=== PATIENT | female | born 1995 | race Caucasian/White ===

== ENCOUNTER 2017-04-26 22:38 | Emergency (ER) | payer OTHER ==
[~2017-04-26] VITALS: Ht 170.2 cm; Wt 54.0 kg
[~2017-04-26 22:38] MED LIST: ACET325T33 PO
[2017-04-26 22:44] VITALS: Ht 170.2 cm; Wt 54.0 kg
[2017-04-27 00:15] LABS: BASOPHILS % 0.2 % (0.0-2.0); EOSINOPHILS # 0.2 10^3/ul (0.0-0.5); EOSINOPHILS % 1.9 % (0.0-7.0); HEMATOCRIT 33.9 % (37.0-47.0); HEMOGLOBIN 11.9 g/dl (12.0-16.0); LYMPHOCYTES % 24.3 % (15.0-51.0); MEAN CORPUSCULAR HGB CONC 35.1 g/dl (32.0-37.0); MEAN CORPUSCULAR VOLUME 88.3 fl (82.0-101.0); MEAN PLATELET VOLUME 10.3 fl (7.4-10.4); MONOCYTE # 0.5 10^3/ul (0.3-0.9); MONOCYTES % 5.7 % (0.0-11.0); NEUTROPHIL # 5.7 10^3/ul (1.6-7.5); NEUTROPHILS % 67.5 % (39.0-77.0); PLATELET COUNT 218 10^3/UL (140-415); RED BLOOD COUNT 3.84 10^6/ul (4.20-5.40); RED CELL DISTRIBUTION WIDTH 12.9 % (11.5-14.5); WHITE BLOOD COUNT 8.4 10^3/ul (4.8-10.8)
--- NOTE | 2017-04-27 00:24 | RADRPT ---
PROCEDURE: US OB. CLINICAL INDICATION: Vaginal bleeding. Positive TECHNIQUE: Transabdominal and transvaginal views of the pelvis are available for review. COMPARISON: No prior studies are available for comparison. FINDINGS: Uterus: No evidence of masses and normal in size. Endometrial cavity: Intrauterine gestational sac and yolk sac are present with the following inform ation: Yolk sac:0.29 cm Gestational sac:1.00 cm Ultrasound estimated gestational age:5 weeks 4 days No embryonic pole is demonstrated. There is no evidence of subchorionic hemorrhage. Right ovary/adnexa: Ovarian size is normal estimated at 3.5 x 2.2 x 2.2 cm. No ovarian or adnexal mass lesion is seen. Left ovary/adnexa: Ovarian size increased estimated at 5.1 x 4.6 x 3.2 cm. Simple anechoic cyst netta sures 2.8 x 2.6 x 2.3 cm. No adnexal mass lesion is seen. Cul-de-sac: There is a small amount of free fluid. RPTAT:HJJR IMPRESSION: 1. Intrauterine gestational sac and yolk sac measured at an estimated gestational age of 5 weeks 4 days. 2. As no embryonic pole is visible and viability is therefore uncertain, follow-up evaluation is re commended with correlation to serial serum beta HCG levels and additional ultrasound as clinically i ndicated. 3. Simple left ovarian cyst of 2.8 cm with a trace amount of free fluid in the pelvic cul-de-sac. Physician Alan Date Time Electronically viewed and signed by Physician Alan on 04/27/2017 00:24 /
[2017-04-27 00:44] LABS: ADD UMIC NO; UR ASCORBIC ACID NEGATIVE (NEGATIVE); UR BILIRUBIN (Dip) NEGATIVE (NEGATIVE); UR BLOOD (Dip) NEGATIVE (NEGATIVE); UR CLARITY SLIGHTLY CLOUDY (CLEAR); UR COLOR YELLOW (YELLOW); UR GLUCOSE (Dip) NEGATIVE (NEGATIVE); UR KETONES (Dip) NEGATIVE (NEGATIVE); UR LEUKOCYTE ESTERASE (Dip) NEGATIVE Leu/ul (NEGATIVE); UR MUCUS FEW /HPF (NONE SEEN); UR NITRITE (Dip) NEGATIVE (NEGATIVE); UR RBC 0 /HPF (0-5); UR SPECIFIC GRAVITY (Dip) 1.027 (1.003-1.030); UR TOTAL PROTEIN (Dip) NEGATIVE (NEGATIVE); UR UROBILINOGEN (Dip) 1+ mg/dL (NEGATIVE)
[2017-04-27] MEDS ORDERED: TYL500 PO (01:07)
--- NOTE | 2017-04-27 01:11 | ERD ---
ER Documentation Chief Complaint Chief Complaint AP X2 WEEKS. VAGINAL BLEED TODAY. JUST FOUND OUT SHE IS HPI This is a 22-year-old female presents to the ER with lower abdominal pain that started 2 weeks ago. Patient recently found out she was , and does not know how far along she is. Patient started having vaginal spotting today. A1. She has not had any fevers or chills. Pain is described as crampy in nature and intermittent. She has not taken anything for her pain. She does admit to some nausea however denies vomiting. ROS 12 point review of systems was done, all negative except per HPI. Medications Home Meds Active Scripts Acetaminophen* (Tylenol*) 500 Mg Tab, 500 MG PO Q4H Y for MILD PAIN LEVEL 1-3 for 3 Days, TAB Prov:ELVI WEBSTER 04/27/17 Acetaminophen* (Tylenol*) 325 Mg Tablet, 1 TAB PO Q6 Y for PAIN AND OR ELEVATED TEMP, #20 TAB Prov:NICKY ZAIDI PA-C 09/09/15 Allergies Allergies: Coded Allergies: No Known Allergy (Unverified , 09/29/14) PMhx/Soc History of Surgery: Yes (D&C) Anesthesia Reaction: No Hx Neurological Disorder: No Hx Respiratory Disorders: No Hx Cardiac Disorders: No Hx Psychiatric Problems: No Hx Miscellaneous Medical Probl: No Hx Alcohol Use: No Hx Substance Use: No Hx Tobacco Use: No Smoking Status: Never smoker Physical Exam Vitals Vital Signs Date Time Temp Pulse Resp B/P Pulse Ox O2 Delivery O2 Flow Rate FiO2 04/26/17 22:44 99.3 88 20 118/70 99 Physical Exam GENERAL: The patient is well developed and appropriate for usual state of health , in no apparent distress. HEENT: Atraumatic. CHEST: Clear to auscultation bilaterally. There are no rales, wheezes or rhonchi. HEART: Regular rate and rhythm. No murmurs, clicks, rubs or gallops. ABDOMEN: Soft, nontender and nondistended. Good bowel sounds. No rebound or guarding. No gross peritonitis. No gross organomegaly or masses. No Ennis sign or McBurney point tenderness. BACK: No midline or flank tenderness. EXTREMITIES: Equal pulses bilaterally. There is no peripheral clubbing, cyanosis or edema. No focal swelling or erythema. Full range of motion. Grossly neurovascularly intact. NEURO: Alert and oriented. Cranial nerves II through XII are intact. Motor strength in all 4 extremities with 5/5 strength. Sensation grossly intact. Normal speech and gait. SKIN: There is no apparent rash or petechia. The skin is warm and dry. Result Diagram: 04/26/17 0000 Results 24 hrs Laboratory Tests Test 04/26/17 00:00 04/26/17 23:59 White Blood Count 8.410^3/ul Red Blood Count 3.8410^6/ul Hemoglobin 11.9g/dl Hematocrit 33.9% Mean Corpuscular Volume 88.3fl Mean Corpuscular Hemoglobin 31.0pg Mean Corpuscular Hemoglobin Concent 35.1g/dl Red Cell Distribution Width 12.9% Platelet Count 58819^3/UL Mean Platelet Volume 10.3fl Neutrophils % 67.5% Lymphocytes % 24.3% Monocytes % 5.7% Eosinophils % 1.9% Basophils % 0.2% Nucleated Red Blood Cells % 0.0/100WBC Neutrophils # 5.710^3/ul Lymphocytes # 2.010^3/ul Monocytes # 0.510^3/ul Eosinophils # 0.210^3/ul Basophils # 0.010^3/ul Nucleated Red Blood Cells # 0.010^3/ul Beta HCG, Quantitative 93824.0mIU/ml Urine Color YELLOW Urine Clarity SLIGHTLY CLOUDY Urine pH 7.0 Urine Specific [place] 1.027 Urine Ketones NEGATIVEmg/dL Urine Nitrite NEGATIVEmg/dL Urine Bilirubin NEGATIVEmg/dL Urine Urobilinogen 1+mg/dL Urine Leukocyte Esterase NEGATIVELeu/ul Urine Microscopic RBC 0/HPF Urine Microscopic WBC 1/HPF Urine Mucus FEW/HPF Urine Hemoglobin NEGATIVEmg/dL Urine Glucose NEGATIVEmg/dL Urine Total Protein NEGATIVEmg/dl [place] [id number] Radiology Main Line: [phone] DIAGNOSTIC IMAGING REPORT Patient: SAEED CHILDRESS : 1995 Age: 22 Sex: F MR #: [id number] DOS: 04/27/17 2343 Ordering MD: ELVI WEBSTER PA-C Location: [facility] Room/Bed: PROCEDURE: US OB. CLINICAL INDICATION: Vaginal bleeding. Positive TECHNIQUE: Transabdominal and transvaginal views of the pelvis are available for review. COMPARISON: No prior studies are available for comparison. FINDINGS: Uterus: No evidence of masses and normal in size. Endometrial cavity: Intrauterine gestational sac and yolk sac are present with the following information: Yolk sac: 0.29 cm Gestational sac: 1.00 cm Ultrasound estimated gestational age: 5 weeks 4 days No embryonic pole is demonstrated. There is no evidence of subchorionic hemorrhage. Right ovary/adnexa: Ovarian size is normal estimated at 3.5 x 2.2 x 2.2 cm. No ovarian or adnexal mass lesion is seen. Left ovary/adnexa: Ovarian size increased estimated at 5.1 x 4.6 x 3.2 cm. Simple anechoic cyst measures 2.8 x 2.6 x 2.3 cm. No adnexal mass lesion is seen. Cul-de-sac: There is a small amount of free fluid. RPTAT:HJJR IMPRESSION: 1. Intrauterine gestational sac and yolk sac measured at an estimated gestational age of 5 weeks 4 days. 2. As no embryonic pole is visible and viability is therefore uncertain, follow -up evaluation is recommended with correlation to serial serum beta HCG levels and additional ultrasound as clinically indicated. 3. Simple left ovarian cyst of 2.8 cm with a trace amount of free fluid in the pelvic cul-de-sac. Physician Alan Date Time Electronically viewed and signed by Physician Alan on 04/27/2017 00:24 JR/ CC: ELVI WEBSTER Procedures/MDM Differential diagnosis: Threatened , missed , incomplete , ectopic , molar , UTI, pyelonephritis. At this time threatened cannot be ruled out, she should return to ER in 48 hours for recheck. Discussed this case with labor is pension adviser as patient did not have pole and her bHCG is greater than 1500. She is stable for outpatient follow-up. She should return ER sooner if symptoms worsen. My medical decision making sure with the patient she understands and agrees with plan. Departure Diagnosis: Primary Impression: Vaginal bleeding in patient at less than 20 weeks ges... Condition: Stable Patient Instructions: Bleeding During Early Referrals: REGLA DOMINGUEZ MD (PCP) Additional Instructions: Return to this facility in 2 DAYS for a follow-up exam.Return sooner if your condition worsens. ELVI WEBSTER Apr 27, 2017 01:11
== END 2017-04-27 01:14 | disposition home or self-care (01) ==
LOC: FTE 22:38
DX: O20.9 Hemorrhage in early pregnancy, unspecified (principal); R10.2 Pelvic and perineal pain; Z3A.01 Less than 8 weeks gestation of pregnancy
CPT/HCPCS: 36415; 76801; 76817; 81001; 81003; 84702; 85025; 86900; 86901; Z7502

== ENCOUNTER 2017-12-09 23:26 | Outpatient (CLI) | END 2017-12-10 02:50 | disposition home or self-care (01) ==

== ENCOUNTER 2017-12-14 18:33 | Outpatient (CLI) | END 2017-12-14 21:53 | disposition home or self-care (01) ==

== ENCOUNTER 2017-12-20 20:45 | Inpatient (IN) | END 2017-12-23 14:03 | disposition home or self-care (01) | DRG 775 ==